=== PATIENT | female | born 1935 | race American Indian/Alaskan Native ===

== ENCOUNTER 2018-07-28 10:44 | Outpatient (CLI) | payer MEDICARE ==
--- NOTE | 2018-07-28 11:10 | XRay Report ---
RIGHT ELBOW, 3 views: HISTORY: Pain and swelling. The bony architecture is intact without evidence of fracture or dislocation. No significant soft tissue abnormality is seen. IMPRESSION: Normal right elbow.
== END 2018-07-28 10:45 | disposition home or self-care (01) ==
LOC: XRAY 10:44
PROVIDERS: ATTEND Internal Medicine
DX: R22.31 Localized swelling, mass and lump, right upper limb (principal)